=== PATIENT | male | born 1985 | race Caucasian/White ===

== ENCOUNTER 2018-03-11 09:46 | Emergency (ER) | payer SELFPAY ==
[~2018-03-11] VITALS: Ht 190.5 cm; Wt 116.6 kg
[2018-03-11] MEDS ORDERED: RABIES IMMUNE GLOBULIN 150 UNIT/ML 10 ML (HYPERRAB) IM ONE (10:30)
[2018-03-11] MEDS ORDERED: RABIES VACCINE HUMAN DIPL CELL 1 ML/2.5 UNITS SYR IM ONE (10:30)
--- NOTE | 2018-03-11 10:43 | ED Integumentary General ---
General Chief Complaint: Bite-Animal/Human/Insect Stated Complaint: NEEDS RABIES VACC/BITTEN BY COW Nursing Triage Note: ARRIVED VIA AMB TO ROOM 06. 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 TOOK THE COW TO THE [facility] ON MONDAY AND THE COW EVENTUALLY . SENT THE COW TO THE STATE TO TEST FOR RABIES. Source: patient Exam Limitations: no limitations History of Present Illness Date Seen by Provider: Mar 11, 2018 Time Seen by Provider: 10:38 Initial Comments To ER with concerns of rabies exposure. This occurred 7 days ago. One of his Cows was foaming at the mouth and not acting normally. He believes it may have a hedge apple stuck in his throat he reached in to try to get it and there was no hedge apple. He accidentally scraped his hand on a calloused tooth which was then exposed to saliva on the way in. The calcific subsequently a few days later. The head has been cut off and sent to [facility] where they will tested for rabies tomorrow. He called his honey liquefier who suggested this could have been rabies. Patient himself has no symptoms at this time. Timing/Duration: other Severity: moderate Location: extremities Possible Cause: no cause identified Allergies and Home Medications Allergies Coded Allergies: No Known Drug Allergies (Unverified , 03/11/18) Patient Home Medication List Home Medication List Reviewed: Yes Review of Systems Review of Systems Constitutional: see HPI EENTM: see HPI Respiratory: no symptoms reported Cardiovascular: no symptoms reported Genitourinary: no symptoms reported Musculoskeletal: no symptoms reported Skin: see HPI Psychiatric/Neurological: No Symptoms Reported Endocrine: No Symptoms Reported Hematologic/Lymphatic: No Symptoms Reported Past Sldxvxr-Molfab-Sokhjm Hx Patient Social History Alcohol Use: Occasionally Uses Recreational Drug Use: No Smoking Status: Current Everyday Smoker Recent Foreign Travel: No Contact w/Someone Who Travel: No Recent Infectious Disease Expo: No Recent Hopitalizations: No Immunizations Up To Date Tetanus Booster (TDap): More than 5yrs Seasonal Allergies Seasonal Allergies: No Past Medical History Surgeries: No Respiratory: No Cardiac: No Neurological: No Genitourinary: No Gastrointestinal: No Musculoskeletal: No Endocrine: No Cancer: No Psychosocial: No Integumentary: No Physical Exam Vital Signs Vital Signs - First Documented 03/11/18 10:20 Temp 98.0 Pulse 78 Resp 16 B/P (MAP) 162/100 (120) Pulse Ox 99 O2 Delivery Room Air Capillary Refill : Less Than 3 Seconds General Appearance: WD/WN, no apparent distress HEENT: PERRL/EOMI, normal ENT inspection Neck: non-tender, full range of motion Respiratory: no respiratory distress, no accessory muscle use Neurologic/Psychiatric: alert, normal mood/affect, oriented x 3 Skin: normal color, warm/dry, other (small abrasion with eschar over the dorsal aspect of the right hand fifth MCP joint dorsally with no erythema or cellulitis.) Progress/Results/Core Measures Results/Orders My Orders Orders - BALBINA HERMAN APRN Rabies Vaccine Human Dipl Cell (Rabavert (03/11/18 10:30) Rabies Immune Globulin/Pf Inj (Hyperrab (03/11/18 10:30) Vital Signs/I&O 03/11/18 10:20 Temp 98.0 Pulse 78 Resp 16 B/P (MAP) 162/100 (120) Pulse Ox 99 O2 Delivery Room Air Blood Pressure Mean: 120 Departure Communication (Admissions) Rabies immunoglobulin and vaccine were injected by de. The rabies vaccine 0.5 mL to the left deltoid. To the side of the abrasion of the right hand 2 mL were injected around the abrasion of the fifth MCP joint, 3 mL to the right deltoid, 5 mL to the right vastus lateralis and 5 mL to the left vastus lateralis for total of 15 mL which equals 2300 international units. Impression Primary Impression: possible rabies exposure Additional Impression: Abrasion of hand Disposition: 01 HOME, SELF-CARE Condition: Stable Departure-Patient Inst. Decision time for Depature: 10:41 Referrals: NO,LOCAL PHYSICIAN (PCP) Primary Care Physician Patient Instructions: Rabies (DC), Rabies Immune Globulin (Human), Rabies Vaccine Add. Discharge Instructions: 1. Return here to the hospital on Monday the Monday the and Monday the for rabies vaccine. All discharge instructions reviewed with patient and /or family. Voiced understanding. BALBINA HERMAN APRN Mar 11, 2018 10:43
[2018-03-11 11:30] VITALS: BP 143/111
== END 2018-03-11 11:30 | disposition home or self-care (01) ==
LOC: ER 09:48
DX: S60.511A Abrasion of right hand, initial encounter (principal); F17.200 Nicotine dependence, unspecified, uncomplicated; Z20.3 Contact with and (suspected) exposure to rabies; X58.XXXA Exposure to other specified factors, initial encounter
CPT/HCPCS: 90376; 90471; 90675; 96372; 99284